=== PATIENT | female | born 2000 | race Caucasian/White ===

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

== ENCOUNTER → 2021-06-18 | Outpatient (CLI) | payer MEDICAID ==
[~2021-06-18] MED LIST: ACET-789 PO; AMOX500C2 PO; AMOX500T2 PO; CLIN-144 PO; CLIN300C3 PO; IBUP-1780 PO
== END ==
LOC: LAB FS 14:12
PROVIDERS: ATTEND Registered Nurse Emergency
DX: N89.8 Other specified noninflammatory disorders of vagina (principal)
CPT/HCPCS: 87210

== ENCOUNTER 2021-07-10 16:35 | Emergency (ER) | payer MEDICAID ==
--- NOTE | 2021-07-10 16:41 | ED GU-Female ---
General Chief Complaint: - Reproductive Stated Complaint: VOMITTING,VAGINAL PAIN/SWELLING History of Present Illness Date Seen by Provider: Jul 10, 2021 Time Seen by Provider: 16:41 Initial Comments 20 yr F with PMH of multiple Bartholin cyst drainages by [facility], is here with c/o swelling to her right labia, which she thinks is another Bartholin's cyst. Pain and swelling began a few days ago, with increase in severity today. Patient originally had a [facility] appointment today to have it drained in clinic, however her boyfriend had an injury and she had to cancel the appointment and she came to the ER instead. Patient stated she had a wet prep and GC chlamydia test done 2 to 3 weeks back which was negative and does not want to have one today. Allergies and Home Medications Allergies Coded Allergies: No Known Drug Allergies (Unverified , 11/19/19) Patient Home Medication List Home Medication List Reviewed: Yes Acetaminophen with Codeine (Tylenol with Codeine #3 Tablet) 1 Each Tablet, 1 EACH PO Q6H Prescribed by: MARLYN GANDHI on 11/20/19 0851 Amoxicillin (Amoxicillin) 500 Mg Tablet, 500 MG PO Q8H Prescribed by: MARLYN GANDHI on 11/20/19 0855 Clindamycin HCl (Cleocin HCl) 300 Mg Capsule, 300 MG PO Q6H Prescribed by: MARLYN GANDHI on 11/20/19 0855 Clindamycin HCl (Clindamycin HCl) 300 Mg Capsule, 300 MG PO Q6H Prescribed by: FANTASMA GUTIERREZ MD on 07/10/21 1716 Ibuprofen (Ibuprofen) 800 Mg Tablet, 800 MG PO Q8H PRN for PAIN-MILD Prescribed by: MARLYN GANDHI on 11/20/19 0851 Review of Systems Review of Systems Constitutional: no symptoms reported EENTM: no symptoms reported Respiratory: no symptoms reported Cardiovascular: no symptoms reported Gastrointestinal: no symptoms reported Genitourinary: other (right labial swelling) : No Musculoskeletal: no symptoms reported Skin: no symptoms reported Psychiatric/Neurological: No Symptoms Reported Endocrine: No Symptoms Reported Past Rfdhkob-Iusism-Kmqhxk Hx Immunizations Up To Date PED Vaccines UTD: No Seasonal Allergies Seasonal Allergies: Yes (singular ,flonase prn) Past Medical History Surgeries: Yes Respiratory: No Currently Using CPAP: No Currently Using BIPAP: No Cardiac: No Neurological: No Female Reproductive Disorders: Denies Genitourinary: Yes UTI-Chronic Gastrointestinal: No Musculoskeletal: No Endocrine: No HEENT: Yes Cancer: No Psychosocial: No Integumentary: Yes (mild ) Eczema Blood Disorders: No Adverse Reaction/Blood Tranf: No Family Medical History Patient reports no known family medical history. Physical Exam Vital Signs Vital Signs - First Documented 07/10/21 16:40 Temp 37.0 Pulse 117 Resp 18 B/P (MAP) 132/87 (102) Pulse Ox 98 Capillary Refill : Height, Weight, BMI Height: '" Weight: lbs. oz. kg; 21.00 BMI Method: General Appearance: WD/WN, no apparent distress HEENT: PERRL/EOMI Gastrointestinal: normal bowel sounds, non tender, soft Genital/Rectal: normal vaginal exam, other (right labial swelling from BArtholin gland cyst. No discharge seen ) Pelvic: no cerv. motion tender Neurologic/Psychiatric: alert, oriented x 3 Progress/Results/Core Measures Suspected Sepsis SIRS Temperature: Pulse: Respiratory Rate: Blood Pressure / Mean: Results/Orders Vital Signs/I&O 07/10/21 07/10/21 16:40 17:21 Temp 37.0 37.0 Pulse 117 117 Resp 18 18 B/P (MAP) 132/87 (102) 132/87 Pulse Ox 98 98 Capillary Refill : Progress Note : Progress Note 1. RIGHT SIDED BARTHOLIN'S CYST: - Clindamycin 300mg Q6H for 7 days prescription - Pt had a [facility] appt for this today but she cancelled last minute and came to ER instead. Pt will follow up in Dr. Gandhi clinic tomorrow instead. Since pt has had 4 or 5 marsupilizations and balloon catheter placement, will defer to [facility] to determine further management. - NSAID prn pain -The patient was seen in the ED, and treated appropriately to presentation at a specific point in time. Patient is informed that there is a possibility that disease and illness can evolve and change in acuity rapidly or slowly after patient is discharged from the ER. Precautionary advice given to the patient for immediate return to ER if symptoms worsen or do not resolve, and to seek emergency care sooner rather than later. Pt also advised on the importance of PCP follow up and compliance with management and follow up plan. Pt verbally expressed understanding. Departure Impression Primary Impression: Bartholin cyst Disposition: HOME, SELF-CARE Condition: Stable/Unchanged Departure-Patient Inst. Referrals: [facility] MD (PCP/Family) Primary Care Physician Patient Instructions: Bartholin Gland Cyst Add. Discharge Instructions: F/u with [facility] clinic tomorrow - Clindamycin 300mg Q6H for 7 days - NSAID prn pain All discharge instructions reviewed with patient and/or family. Voiced understanding. Scripts Clindamycin HCl (Clindamycin HCl) 300 Mg Capsule 300 MG PO Q6H for 7 Days, #28 CAP Prov: FANTASMA GUTIERREZ MD 07/10/21 Work/School Note: Work Release Form Date Seen in the Emergency Department: Jul 10, 2021 Restrictions: no restrictions FANTASMA GUTIERREZ MD Jul 10, 2021 16:41
[2021-07-10] MEDS ORDERED: CLIN-144 PO (17:16)
[2021-07-10 17:21] VITALS: BP 132/87
== END 2021-07-10 17:22 | disposition home or self-care (01) ==
LOC: EDUNIT# 16:35 → ER FS 16:36
DX: N75.0 Cyst of Bartholin's gland (principal)
CPT/HCPCS: 99284